=== PATIENT | female | born 1970 | race Caucasian/White ===

== ENCOUNTER 2025-03-13 14:34 | Emergency (ER) | payer BC ==
[~2025-03-13] VITALS: Ht 160 cm; Wt 75.2 kg
[2025-03-13 14:37] VITALS: BP 135/83; PULSE 94; RESP 18; TEMP 97.9; O2SAT 98
[2025-03-13] MEDS: TETanus/Pertussis (Acell)/Diphther VAC/PF (Tdap-Adult) 0.5ml syringe IMVAC ONE (15:16)
[2025-03-13] MEDS: acetaminophen 325mg tablet PO ONE (15:17)
[2025-03-13] MEDS: LIDOcaine 1% W/epiNEPHrine 1:100,000 20ml vial IJ ONE (15:17)
[2025-03-13] MEDS ORDERED: CEPH-585 PO ×2 (16:14→16:20)
== END 2025-03-13 16:15 | disposition home or self-care (01) ==
LOC: ER 14:36
DX: S81.812A Laceration without foreign body, left lower leg, initial encounter (principal); Z88.1 Allergy status to other antibiotic agents; W01.0XXA Fall on same level from slipping, tripping and stumbling without subsequent striking against object, initial encounter; Y93.89 Activity, other specified; Y92.89 Other specified places as the place of occurrence of the external cause; Y99.8 Other external cause status
CPT/HCPCS: 12002; 73564; 90471; 90715; 99283; A6258; A6449